=== PATIENT | male | born 1990 | race Caucasian/White ===

== ENCOUNTER 2016-08-05 22:17 | Emergency (ER) | payer OTHER ==
[2016-08-05 22:26] VITALS: PULSE 66
[2016-08-05] MEDS ORDERED: Alum-Mag Hydrox-Simethicone Susp (30 mL) PO STA (22:52)
[2016-08-05] MEDS ORDERED: Alum-Mag Hydrox-Simethicone Susp (30 mL) ONE (23:06)
--- NOTE | 2016-08-05 23:24 | C.PDOC ---
Time Seen by Provider: 08/05/16 22:34 Chief Complaint (Nursing): GI Problem History Per: Patient Onset/Duration Of Symptoms: Days (about 1 week), Waxing/Waning Current Symptoms Are (Timing): Still Present Severity: Moderate Location Of Pain/Discomfort: Diffuse Quality Of Discomfort: Unable To Describe, Gas Associated Symptoms: Constipation Exacerbating Factors: Food Alleviating Factors: None Last Bowel Movement: Yesterday Past Medical History Reviewed: Historical Data, Nursing Documentation, Vital Signs Vital Signs: Last Vital Signs Temp 97.6 F 08/05/16 22:21 Pulse 66 08/05/16 22:21 Resp 16 08/05/16 22:21 BP 123/74 08/05/16 22:21 Pulse Ox 98 08/05/16 22:21 - Medical History PMH: No Chronic Diseases Surgical History: No Surg Hx Family History: States: Unknown Family Hx - Social History Hx Alcohol Use: No Hx Substance Use: No - Immunization History Hx Tetanus Toxoid Vaccination: No Hx Influenza Vaccination: No Hx Pneumococcal Vaccination: No Review Of Systems Except As Marked, All Systems Reviewed And Found Negative. Constitutional: Negative for: Fever, Weakness Cardiovascular: Negative for: Chest Pain Respiratory: Negative for: Shortness of Breath Gastrointestinal: Positive for: Constipation. Negative for: Vomiting, Abdominal Pain, Diarrhea, Melena, Hematochezia, Hematemesis Genitourinary: Negative for: Dysuria Musculoskeletal: Negative for: Neck Pain Skin: Negative for: Rash Neurological: Negative for: Weakness, Numbness, Seizures, Altered Mental Status Physical Exam - Physical Exam Appears: Non-toxic, No Acute Distress Skin: Normal Color, Warm, Dry, No Rash Head: Atraumatic, Normacephalic Eye(s): bilateral: Normal Inspection, PERRL, EOMI Oral Mucosa: Moist Neck: Normal ROM, Supple Cardiovascular: Rhythm Regular Respiratory: Normal Breath Sounds, No Accessory Muscle Use Gastrointestinal/Abdominal: Bowel Sounds (wnl), Soft, No Tenderness, No Guarding , No Rebound Back: No CVA Tenderness Extremity: Normal ROM Neurological/Psych: Oriented x3, Normal Motor, Normal Sensation ED Course And Treatment O2 Sat by Pulse Oximetry: 98 Pulse Ox Interpretation: Normal - Other Rad KUB X-Ray: Interpreted by Me, Viewed By Me Interpretation: NSBGP. Retained feces. Reassessment Condition: Improved Disposition Counseled Patient/Family Regarding: Studies Performed, Diagnosis, Need For Followup, Rx Given - Disposition Referrals: Feliciano Mina MD [Medical Doctor] - Disposition: HOME/ ROUTINE Disposition Time: 23:24 Condition: STABLE Additional Instructions: Follow up with your doctor for further evaluation and treatment, including referral to a [employer]/Fireman if symptoms persist. Return to the ER if you develop fever, vomiting, worsening of symptoms or if you have any other concerns. Prescriptions: Famotidine [Pepcid] 20 mg PO BID #30 tab Polyethylene Glycol 3350 [Miralax] 17 gm PO DAILY #7 packet Instructions: Gas and Bloating (ED) - Clinical Impression Clinical Impression: Abdominal discomfort
[2016-08-05 23:36] VITALS: BP 127/68; RESP 17; TEMP 97.9; O2SAT 100
--- NOTE | 2016-08-06 11:12 | RAD ---
HISTORY: Abdominal discomfort, constipation COMPARISON: No prior. FINDINGS: BOWEL: No evidence of bowel obstruction. Mild retained feces. No masses or abnormal calcifications. No hepatic or splenic enlargement. BONES: Normal. OTHER FINDINGS: None. IMPRESSION: Normal bowel gas pattern.
== END 2016-08-05 23:41 | disposition home or self-care (01) ==
LOC: C.ER 22:17
DX: R10.84 Generalized abdominal pain (principal)

== ENCOUNTER 2016-10-01 19:54 | Emergency (ER) | payer OTHER ==
[2016-10-01 20:19] VITALS: RESP 18
[2016-10-01] MEDS ORDERED: Sodium Chloride 0.9% 1,000 ML IV ONE (20:39)
[2016-10-01 21:18] LABS: BASO % 0.2 % (0.0-2.0); EOS # 0.1 K/uL (0.0-0.7); EOS % 0.6 % (0.0-4.0); HEMOGLOBIN 17.2 g/dL (12.0-18.0); LYMPH # 0.6 K/uL (1.0-4.3); LYMPH % 5.8 % (20.0-40.0); MEAN CORPUSCULAR HEMOGLOBIN 30.8 pg (27.0-31.0); MEAN CORPUSCULAR HGB CONC 33.9 g/dL (33.0-37.0); MONO # 0.4 K/uL (0.0-0.8); MONO % 4.3 % (0.0-10.0); NEUT # 8.6 K/uL (1.8-7.0); NEUT % 89.1 % (50.0-75.0); PLATELET COUNT 202 K/uL (130-400); RBC 5.59 Mil/uL (4.40-5.90); RED CELL DISTRIBUTION WIDTH 12.8 % (11.5-14.5); WHITE BLOOD COUNT 9.7 K/uL (4.8-10.8)
[2016-10-01 21:19] LABS: MEAN CELL VOLUME 90.7 fL (80.0-94.0)
[2016-10-01 21:26] LABS: ALBUMIN 4.3 g/dL (3.5-5.0)
[2016-10-01 21:29] LABS: ALB/GLOB RATIO 1.1 (1.0-2.1); AST/SGOT 27 U/L (17-59); GFR AFRICAN-AMERICAN > 60; GFR NON-AFRICAN AMERICAN > 60
[2016-10-01 21:30] LABS: ALT/SGPT 39 U/L (21-72); BLOOD UREA NITROGEN 15 mg/dL (9-20); CALCIUM 8.6 mg/dl (8.6-10.4); LIPASE 113 U/L (23-300)
[2016-10-01 22:11] VITALS: BP 118/63
--- NOTE | 2016-10-01 22:13 | C.PDOC ---
History Of Present Illness 26 year old male who presents to the ER with a complaint of epigastric pain, vomiting and diarrhea that began today. Patient reports he had intermittent cough and congestion for the past 3 weeks that had improved. Patient states he used peptobismol with no relief; denies fever, urinary symptoms, chest pain, recent travel/sick contact. ` Time Seen by Provider: 10/01/16 20:32 Chief Complaint (Nursing): Cough, Cold, Congestion History Per: Patient History/Exam Limitations: no limitations Onset/Duration Of Symptoms: Hrs Current Symptoms Are (Timing): Still Present Quality Of Discomfort: Unable To Describe Associated Symptoms: Vomiting, Diarrhea. denies: Fever, Chills, Chest Pain, Urinary Symptoms Exacerbating Factors: None Alleviating Factors: None Recent travel outside of the [place]: No Past Medical History Reviewed: Historical Data, Nursing Documentation, Vital Signs Vital Signs: Last Vital Signs Temp 98.0 F 10/01/16 23:55 Pulse 72 10/01/16 23:55 Resp 18 10/01/16 23:55 BP 118/63 10/01/16 22:11 Pulse Ox 98 10/02/16 03:05 - Medical History PMH: No Chronic Diseases Surgical History: No Surg Hx Family History: States: Unknown Family Hx - Social History Hx Alcohol Use: No Hx Substance Use: No - Immunization History Hx Tetanus Toxoid Vaccination: No Hx Influenza Vaccination: No Hx Pneumococcal Vaccination: No Review Of Systems Constitutional: Negative for: Fever, Chills Gastrointestinal: Positive for: Vomiting, Abdominal Pain, Diarrhea Genitourinary: Negative for: Dysuria, Incontinence, Hematuria Physical Exam - Physical Exam Appears: Non-toxic Skin: Normal Color, Warm, Dry Head: Atraumatic, Normacephalic Oral Mucosa: Moist Chest: Symmetrical, No Tenderness Cardiovascular: Rhythm Regular, No Murmur Respiratory: Normal Breath Sounds, No Rales, No Rhonchi, No Wheezing Gastrointestinal/Abdominal: Soft, No Tenderness Back: Normal Inspection, No CVA Tenderness, No Vertebral Tenderness, No Paraspinal Tenderness Neurological/Psych: Oriented x3, Normal Speech, Normal Cognition ED Course And Treatment - Laboratory Results Result Diagrams: 10/01/16 21:12 10/01/16 21:12 O2 Sat by Pulse Oximetry: 98 (Room air) Pulse Ox Interpretation: Normal Progress Note: CXR ordered. Pepcid, toradol, zofran, and IV fluids administered. Patient is resting comfortably, abdomen remains soft, and patient is tolerating PO. Labs and urine reviewed, patient found to have a bandemia of 14, patient feels comfortable going home, will discharge home with cipro and instructed to return if any worsening symptoms arise. Disposition Counseled Patient/Family Regarding: Diagnosis, Need For Followup, Rx Given - Disposition Referrals: [email or web address] [Outside] Disposition: HOME/ ROUTINE Disposition Time: 22:10 Condition: STABLE Additional Instructions: Please follwo up with PMD or in clinic BRAT diet( Bread, rice, apple , tea) Increase fluids ( Gatorade, vit water, gingerale, sprite or worse) Prescriptions: Benzonatate [Tessalon Perles] 100 mg PO TID #20 sgl Ciprofloxacin [Cipro] 1 tab PO BID #14 tab Famotidine [Pepcid] 20 mg PO DAILY #30 tab Ondansetron [Zofran Odt] 4 mg PO TID #7 odt Instructions: Gastroenteritis (ED), Viral Syndrome (ED) Forms: [employer] (Bulgarian) - Clinical Impression Clinical Impression: Gastroenteritis - Scribe Statement The provider has reviewed the documentation as recorded by the Scribe Aamir Olivas All medical record entries made by the Scribe were at my direction and personally dictated by me. I have reviewed the chart and agree that the record accurately reflects my personal performance of the history, physical exam, medical decision making, and the department course for this patient. I have also personally directed, reviewed, and agree with the discharge instructions and disposition.
[2016-10-01 22:14] LABS: BANDS 14 % (0-2); LYMPHOCYTE 7 % (20-40); MONOCYTE 4 % (0-10); NEUTROPHIL 75 % (50-75); TOTAL CELLS COUNTED 100
[2016-10-01 22:15] LABS: HYPOCHROMIC SLIGHT; MICROCYTOSIS SLIGHT; PLATELET ESTIMATE NORMAL (NORMAL); TEARDROP CELLS SLIGHT
[2016-10-01 22:16] LABS: LARGE PLATELETS PRESENT
[2016-10-01 22:45] LABS: SQUAMOUS EPITHIAL < 1 /hpf (0-5); URINE BACTERIA OCC (<OCC); URINE BILIRUBIN NEGATIVE (NEGATIVE); URINE BLOOD NEGATIVE (NEGATIVE); URINE CLARITY Clear (Clear); URINE COLOR Yellow (YELLOW); URINE GLUCOSE (UA) NORMAL (Normal); URINE LEUKOCYTE ESTERASE NEG Leu/uL (Negative); URINE NITRATE NEGATIVE (NEGATIVE); URINE PROTEIN NEGATIVE (NEGATIVE); URINE UROBILINOGEN NORMAL mg/dL (0.2-1.0)
[2016-10-01 23:55] VITALS: PULSE 72; TEMP 98
[2016-10-02 03:00] VITALS: O2SAT 98
--- NOTE | 2016-10-02 07:49 | RAD ---
HISTORY: cough COMPARISON: 09/02/2015 TECHNIQUE: Chest PA and lateral FINDINGS: LUNGS: No active pulmonary disease. PLEURA: No significant pleural effusion identified. No pneumothorax apparent. CARDIOVASCULAR: Normal. OSSEOUS STRUCTURES: No significant abnormalities. VISUALIZED UPPER ABDOMEN: Normal. OTHER FINDINGS: None. IMPRESSION: No active disease.
== END 2016-10-01 23:56 | disposition home or self-care (01) ==
LOC: C.ER 19:54
DX: K52.9 Noninfective gastroenteritis and colitis, unspecified (principal)
CPT/HCPCS: 71020; 80053; 81001; 83690; 85025; 96361; 96374; 96375; 99285; J1885; J2405; J7040